=== PATIENT | male | born 1980 | race Caucasian/White ===

== ENCOUNTER 2017-07-23 01:18 | Emergency (ER) | payer SELFPAY ==
[~2017-07-23] VITALS: Ht 180.3 cm; Wt 95.3 kg
[~2017-07-23 01:18] MED LIST: ALBU0.8322 IH; ALBU17AE23 IH; ALBU17AE3; AMOX500C2 PO; AZIT-21 PO; BUDE10.22 IH; DOXY100C2 PO; GFN600TCR; GUAI100L2; HYDR-1231 PO; IPRA3AMP19; IPRA3AMP19 IH; METH4TAB PO; PRD20T PO; PRD50T PO; RT-COMBINH IH; TIOT18CA IH
--- OUTSIDE RECORDS SUMMARY | 2017-07-23 01:25 | XMS REPORT | Continuity of Care Document ---
Author Author [facility] Address Unknown Phone Unavailable Allergies Active Description Code Type Severity Reaction Onset Reported/Identified Relationship to Patient Clinical Status Yes No Known Drug Allergies [id number] Drug Allergy Mild N/A 06/29/2009 Medications There is no data. Problems Date Dx Coded Attending Type Code Diagnosis Diagnosed By 08/22/2012 Ot 493.92 08/22/2012 Ot 786.05 05/10/2013 GOVIND DUPONT MD Ot 465.9 05/10/2013 GOVIND DUPONT MD Ot 519.11 05/10/2013 GOVIND DUPONT MD Ot 786.2 06/07/2013 JARETT ESCALONA APRN N 493.12 INTRINSIC ASTHMA WITH (ACUTE) EXACERBATION 06/07/2013 JARETT ESCALONA APRN N 493.82 COUGH VARIANT ASTHMA 06/07/2013 JARETT ESCALONA APRN N 786.07 WHEEZING 06/07/2013 JOEL MCKEON APRN S 493.12 INTRINSIC ASTHMA WITH (ACUTE) EXACERBATION 06/07/2013 JOEL MCKEON APRN S 493.82 COUGH VARIANT ASTHMA 06/07/2013 JOEL MCKEON APRN S 786.07 WHEEZING 06/07/2013 JOEL MCKEON APRN S 493.12 INTRINSIC ASTHMA WITH (ACUTE) EXACERBATION 06/07/2013 NATHANAEL MCKEON APRNA S 493.82 COUGH VARIANT ASTHMA 06/07/2013 NATHANAEL MCKEON APRNA S 786.07 WHEEZING 06/07/2013 NATHANAEL MCKEON APRNA S 493.12 INTRINSIC ASTHMA WITH (ACUTE) EXACERBATION 06/07/2013 NATHANAEL MCKEON APRNA S 493.82 COUGH VARIANT ASTHMA 06/07/2013 NATHANAEL MCKEON APRNA S 786.07 WHEEZING 07/31/2013 JOEL MCKEON APRN S V70.0 EXAM - ROUTINE H&P 07/31/2013 JOEL MCKEON APRN V70.0 EXAM - ROUTINE H&P 10/18/2014 SHAHEEN ROBINS MD Ot 729.5 10/18/2014 SHAHEEN ROBINS MD Ot 815.00 10/18/2014 SHAHEEN ROBINS MD Ot E000.8 10/18/2014 SHAHEEN ROBINS MD Ot E917.4 Procedures Code [place] [address] INFLUENZA A & B (IN-HOUSE) 06/07/2013 J7613 ALBUTEROL UNIT DOSE FORM INHALED 06/07/2013 85466 OXIMETRY 06/07/2013 64501 OXIMETRY 07/10/2013 Results There is no data. Encounters ACCT No. Visit Date/Time Discharge Status Pt. Type Provider Facility Loc./Unit Complaint [id number] 01/31/2014 17:56:00 01/31/2014 23:59:59 CLS Outpatient JOEL MCKEON APRN [id number] 07/31/2013 09:59:00 07/31/2013 23:59:59 CLS Outpatient JOEL MCKEON APRN [id number] 07/10/2013 13:19:00 07/10/2013 23:59:59 CLS Outpatient JOEL MCKEON APRN [id number] 06/07/2013 09:27:00 06/07/2013 23:59:59 CLS Outpatient HANNAH COOPER DENNIS JARETT Eloise [id number] 10/18/2014 00:36:00 10/18/2014 02:38:00 DIS Emergency SHAHEEN ROBINS MD [facility] ER [id number] 05/10/2013 07:31:00 05/10/2013 09:25:00 DIS Emergency GOVIND DUPONT MD [facility] ER [id number] 08/21/2012 23:08:00 Document Registration
[2017-07-23] MEDS ORDERED: LACTATED RINGERS 1,000 ML IV ONE (01:31)
[2017-07-23 01:40] LABS: BASOPHILS # (AUTO) 0.1 10^3/uL (0.0-0.1); BASOPHILS % (AUTO) 1 % (0-10); EOSINOPHILS # (AUTO) 0.3 10^3/uL (0.0-0.3); EOSINOPHILS % (AUTO) 3 % (0-10); HEMATOCRIT 44 % (40-54); HEMOGLOBIN 15.6 G/DL (13.3-17.7); LYMPHOCYTES # (AUTO) 3.5 X 10^3 (1.0-4.0); LYMPHOCYTES % (AUTO) 33 % (12-44); MEAN CORPUSCULAR HEMOGLOBIN 32 PG (25-34); MEAN CORPUSCULAR HGB CONC 36 G/DL (32-36); MEAN CORPUSCULAR VOLUME 88 FL (80-99); MEAN PLATELET VOLUME 10.9 FL (7.4-10.4); MONOCYTES # (AUTO) 1.2 X 10^3 (0.0-1.0); MONOCYTES % (AUTO) 11 % (0-12); NEUTROPHILS # (AUTO) 5.5 X 10^3 (1.8-7.8); NEUTROPHILS % (AUTO) 52 % (42-75); PLATELET COUNT 241 10^3/uL (130-400); RED BLOOD COUNT 4.93 10^6/uL (4.35-5.85); RED CELL DISTRIBUTION WIDTH 12.3 % (10.0-14.5); WHITE BLOOD COUNT 10.5 10^3/uL (4.3-11.0)
[2017-07-23] MEDS ORDERED: KETOROLAC 30 MG/ML VIAL IVP ONE (01:45)
[2017-07-23] MEDS ORDERED: ONDANSETRON 4 MG/2 ML (SDV) Z0FRAN IVP ONE ×2 (01:45→04:00)
[2017-07-23 01:51] LABS: BILIRUBIN,URINE NEGATIVE (NEGATIVE); CLARITY,URINE CLEAR; COLOR,URINE YELLOW; GLUCOSE, URINE (UA) NEGATIVE (NEGATIVE); KETONES,URINE NEGATIVE (NEGATIVE); LEUKOCYTE ESTERASE ,URINE NEGATIVE (NEGATIVE); NITRITE,URINE NEGATIVE (NEGATIVE); PH,URINE 6 (5-9); PROTEIN,URINE NEGATIVE (NEGATIVE); UROBILINOGEN,URINE NORMAL (NORMAL)
[2017-07-23 01:57] LABS: BACTERIA,URINE NEGATIVE /HPF; SQUAMOUS EPITHELIAL CELL,UR 0-2 /HPF; WBC,URINE RARE /HPF
[2017-07-23 02:00] LABS: ALANINE AMINOTRANSFERASE 39 U/L (0-55); ALBUMIN 4.4 GM/DL (3.2-4.5); ALKALINE PHOSPHATASE 128 U/L (40-136); BILIRUBIN,TOTAL 0.6 MG/DL (0.1-1.0); BUN/CREATININE RATIO 17; CALCIUM 9.5 MG/DL (8.5-10.1); CARBON DIOXIDE 25 MMOL/L (21-32); CHLORIDE 107 MMOL/L (98-107); CREATININE SERUM 1.07 MG/DL (0.60-1.30); GFR ESTIMATED > 60; GLUCOSE 147 MG/DL (70-105); MAGNESIUM 2.5 MG/DL (1.8-2.4); POTASSIUM 3.7 MMOL/L (3.6-5.0); SODIUM 139 MMOL/L (135-145); TOTAL PROTEIN 6.8 GM/DL (6.4-8.2)
--- NOTE | 2017-07-23 03:11 | ED Abdominal Pain ---
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 REPORTS PAIN WOKE HIM FROM HIS SLEEP. ALSO C/O N/V PUBLIC HEALTH SPECIALIST Sepsis Screen: No Definite Risk Source of Information: Patient Exam Limitations: No Limitations History of Present Illness Date Seen by Provider: Jul 23, 2017 Time Seen by Provider: 01:25 Initial Comments Patient presents to the ER with a chief complaint that he was woke up tonight by a pain in his right abdomen and flank. He has no history of kidney stones, abdominal surgeries or abdominal problems. He is not having any diarrhea, rash, fever or chills. He has no cough shortness of breath or chest pain. He does not take medications for anything. He did take some Tylenol. He did vomit a couple times prior to coming in. Allergies and Home Medications Allergies Coded Allergies: No Known Drug Allergies (Unverified Allergy, Mild, 06/29/09) Home Medications Budesonide/Formoterol Fumarate 10.2 Gm Hfa.aer.ad, 2 PUFF IH BID, (Reported) Hydrocodone Bit/Acetaminophen 1 Tab Tablet, 1 TAB PO Q4H PRN for PAIN Prescribed by: SHAHEEN MCHUGH on 10/18/14 0124 Patient Home Medication List Home Medication List Reviewed: Yes Review of Systems Constitutional: No chills, No diaphoresis, No fever, No malaise EENTM: No Eye Pain, No Ear Pain Respiratory: Denies Cough, Denies Shortness of Air Cardiovascular: Denies Chest Pain, Denies Edema Gastrointestinal: See HPI, Denies Abdomen Distended, Abdominal Pain, Denies Constipated, Denies Diarrhea, Denies Nausea, Denies Vomiting Genitourinary: Denies Burning, Denies Discharge Past Znskowl-Sdknfl-Oyrsmd Hx Patient Social History Alcohol Use: Denies Use Recreational Drug Use: No Smoking Status: Never a Smoker Recent Foreign Travel: No Contact w/Someone Who Travel: No Recent Infectious Disease Expo: No Recent Hopitalizations: No Physical Abuse: No Sexual Abuse: No Mistreated: No Fear: No Immunizations Up To Date Tetanus Booster (TDap): Less than 5yrs Date of Influenza Vaccine: May 10, 2013 Seasonal Allergies Seasonal Allergies: No Surgeries History of Surgeries: No Respiratory History of Respiratory Disorde: Yes Respiratory Disorders: Asthma, COPD Cardiovascular History of Cardiac Disorders: No Neurological History of Neurological Disord: No Reproductive System Hx Reproductive Disorders: No Sexually Transmitted Disease: No Gastrointestinal History of Gastrointestinal Di: No Musculoskeletal History of Musculoskeletal Dis: No Endocrine History of Endocrine Disorders: No Cancer History of Cancer: No Psychosocial History of Psychiatric Problem: No Suicide Risk Score: 0 Blood Transfusions History of Blood Disorders: No Physical Exam Vital Signs VS - Last 72 Hours, by Label 07/23/17 01:25 Temp 96.7 Pulse 71 Resp 20 B/P (MAP) 163/102 (122) Pulse Ox 96 O2 Delivery Room Air Capillary Refill : Less Than 3 Seconds General Appearance: WD/WN, mild distress HEENT: PERRL/EOMI, pharynx normal (oral mucosa is moist) Respiratory: chest non-tender, lungs clear, normal breath sounds, no respiratory distress, no accessory muscle use Cardiovascular: normal peripheral pulses, regular rate, rhythm Gastrointestinal: normal bowel sounds, guarding, No rebound, tenderness (right upper quadrant and right lower quadrant and right flank), other (negative for Harris sign or tenderness over McBurney's point.) Extremities: non-tender, normal inspection, no pedal edema, normal capillary refill Back: normal inspection, CVA tenderness (R) (tender to percussion) Neurologic/Psychiatric: alert, oriented x 3 Skin: normal color, warm/dry Progress/Results/Core Measures Results/Orders Lab Results Laboratory Tests Test 07/23/17 01:30 07/23/17 01:43 Range/Units White Blood Count 10.5 4.3-11.0 10^3/uL Red Blood Count 4.93 4.35-5.85 10^6/uL Hemoglobin 15.6 13.3-17.7 G/DL Hematocrit 44 40-54 % Mean Corpuscular Volume 88 80-99 FL Mean Corpuscular Hemoglobin 32 25-34 PG Mean Corpuscular Hemoglobin Concent 36 32-36 G/DL Red Cell Distribution Width 12.3 10.0-14.5 % Platelet Count 241 130-400 10^3/uL Mean Platelet Volume 10.9 H 7.4-10.4 FL Neutrophils (%) (Auto) 52 42-75 % Lymphocytes (%) (Auto) 33 12-44 % Monocytes (%) (Auto) 11 0-12 % Eosinophils (%) (Auto) 3 0-10 % Basophils (%) (Auto) 1 0-10 % Neutrophils # (Auto) 5.5 1.8-7.8 X 10^3 Lymphocytes # (Auto) 3.5 1.0-4.0 X 10^3 Monocytes # (Auto) 1.2 H 0.0-1.0 X 10^3 Eosinophils # (Auto) 0.3 0.0-0.3 10^3/uL Basophils # (Auto) 0.1 0.0-0.1 10^3/uL Sodium Level 139 135-145 MMOL/L Potassium Level 3.7 3.6-5.0 MMOL/L Chloride Level 107 98-107 MMOL/L Carbon Dioxide Level 25 21-32 MMOL/L Anion Gap 7 5-14 MMOL/L Blood Urea Nitrogen 18 7-18 MG/DL Creatinine 1.07 0.60-1.30 MG/DL Estimat Glomerular Filtration Rate > 60 BUN/Creatinine Ratio 17 Glucose Level 147 H 70-105 MG/DL Calcium Level 9.5 8.5-10.1 MG/DL Magnesium Level 2.5 H 1.8-2.4 MG/DL Total Bilirubin 0.6 0.1-1.0 MG/DL Aspartate Amino Transf (AST/SGOT) 18 5-34 U/L Alanine Aminotransferase (ALT/SGPT) 39 0-55 U/L Alkaline Phosphatase 128 40-136 U/L C-Reactive Protein High Sensitivity 0.13 0.00-0.50 MG/DL Total Protein 6.8 6.4-8.2 GM/DL Albumin 4.4 3.2-4.5 GM/DL Urine Color YELLOW Urine Clarity CLEAR Urine pH 6 5-9 Urine Specific [place] 1.020 1.016-1.022 Urine Protein NEGATIVE NEGATIVE Urine Glucose (UA) NEGATIVE NEGATIVE Urine Ketones NEGATIVE NEGATIVE Urine Nitrite NEGATIVE NEGATIVE Urine Bilirubin NEGATIVE NEGATIVE Urine Urobilinogen NORMAL NORMAL MG/DL Urine Leukocyte Esterase NEGATIVE NEGATIVE Urine RBC (Auto) 3+ H NEGATIVE Urine RBC 5-10 H /HPF Urine WBC RARE /HPF Urine Squamous Epithelial Cells 0-2 /HPF Urine Crystals NONE /LPF Urine Bacteria NEGATIVE /HPF Urine Casts NONE /LPF Urine Mucus SMALL H /LPF Urine Culture Indicated NO My Orders Orders - ARCENIO COBOS Cbc With Automated Diff (07/23/17 01:31) Comprehensive Metabolic Panel (07/23/17 01:31) Hs C Reactive Protein (07/23/17 01:31) Magnesium (07/23/17 01:31) Ua Culture If Indicated (07/23/17 01:31) Saline Lock/Iv-Start (07/23/17 01:31) Lactated Ringers (Lr 1000 Ml Iv Solution (07/23/17 01:31) Ketorolac Injection (Toradol Injection) (07/23/17 01:45) Ondansetron Injection (Zofran Injectio (07/23/17 01:45) Ct Abd/Pelvis Wo(Kidney Stone) (07/23/17 02:00) Abdomen/Kub 1view (07/23/17 02:01) Medications Given in ED Current Medications Medications Dose Ordered Sig/Zena Route Start Time Stop Time Status Last Admin Dose Admin Ketorolac Tromethamine 15 mg ONCE ONCE IVP 07/23/17 01:45 07/23/17 01:46 DC 07/23/17 01:39 15 MG Lactated Ringer's 1,000 ml @ 0 mls/hr Q0M ONCE IV 07/23/17 01:31 07/23/17 01:34 DC 07/23/17 01:39 1,000 MLS/HR Ondansetron HCl 4 mg ONCE ONCE IVP 07/23/17 01:45 07/23/17 01:46 DC 07/23/17 01:39 4 MG Vital Signs/I&O Vital Sign - Last 12Hours 07/23/17 01:25 Temp 96.7 Pulse 71 Resp 20 B/P (MAP) 163/102 (122) Pulse Ox 96 O2 Delivery Room Air Blood Pressure Mean: 122 Progress Note : Time: 03:08 Progress Note Atraumatic right flank pain with hematuria microscopically and right CVA tenderness most commonly caused by a kidney stone. We'll give ketorolac, Zofran and some IV fluids. Diagnostic Imaging Diagonstic Imaging: CT (without contrast) Plain Films/CT/US/NM/MRI: abdomen, pelvis Comments Stool in the colon. Gallbladder unremarkable. Mild right hydronephrosis. Small stone at the Right ureterovesical junction. 2-4 mm Stat read there is a 2 mm calculus in the right distal ureter at the UVJ with mild hydroureter and hydronephrosis. Reviewed: Reviewed [place] Study (stat rad), Reviewed by Me Diagonstic Imaging: Xray Plain Films/CT/US/NM/MRI: abdomen (1 view KUB) Comments No stone seen on flat plate plain film. Nonspecific bowel gas pattern noted. Reviewed: Reviewed by Me Departure Impression Impression: Primary Impression: Ureteral calculus, right Disposition: 01 HOME, SELF-CARE Condition: Improved Departure-Patient Inst. Decision time for Depature: 03:47 Referrals: NO,LOCAL PHYSICIAN (PCP) Primary Care Physician Patient Instructions: Kidney Stones (DC) Add. Discharge Instructions: Drink lots of fluids. Caffeine is okay. If you begin to develop fever return to your doctor. Strain your urine and if you catch the stone you can take it your doctor they can have it tested to find out what the make up is. Review the handout for general recommendations for kidney stones. You can use Tylenol 1000 mg every 8 hours in addition to ibuprofen 800 mg every 8 hours. If this is not working you can take one or 2 tablets of the oxycodone every 6 hours for your pain. Oxycodone will cause drowsiness as well as constipation so you may need to use Colace or MiraLAX to keep himself regular. It is not unusual to see some pink tinged urine or have some pain residual for 2-3 days after passing a kidney stone. If you have nausea place one tablet of Zofran on your tongue and allowed to dissolve every 6 hours as needed. All discharge instructions reviewed with patient and/or family. Voiced understanding. Scripts Ondansetron (Ondansetron Odt) 4 Mg Tab.rapdis 4 MG PO Q6H Y for NAUSEA/VOMITING, #8 TAB 0 Refills Prov: ARCENIO COBOS 07/23/17 Oxycodone HCl/Acetaminophen (Oxycodone-Acetaminophen 5-325) 1 Each Tablet 1-2 EACH PO Q6H Y for PAIN, #14 TAB 0 Refills Prov: ARCENIO COBOS 07/23/17 ARCENIO COBOS Jul 23, 2017 03:11
[2017-07-23] MEDS ORDERED: ONDA4TAB11 PO (03:50)
[2017-07-23] MEDS ORDERED: OXYC-471 PO (03:50)
[2017-07-23] MEDS ORDERED: RX-ONDANSETRON 4 MG ODT (ZOFRAN) PPK #4 PO STA (03:51)
[2017-07-23 04:00] VITALS: BP 138/100
[2017-07-23] MEDS ORDERED: fentaNYL INJECTION 100 MCG/2 ML AMP IVP ONE (04:00)
[2017-07-23] MEDS ORDERED: RX-OXYCODONE/APAP 5-325 MG #4 TAB PK PO PRN (04:00)
--- NOTE | 2017-07-23 06:30 | Diagnostic Imaging Report ---
PROCEDURE: CT urinary tract, rule out kidney stone. TECHNIQUE: Multiple contiguous axial images were obtained through the abdomen and pelvis without the use of intravenous contrast. INDICATION: Right flank pain. FINDINGS: The visualized lung bases appear clear. There is no pleural or pericardial effusion. The liver demonstrates no evidence of a focal intrahepatic abnormality. The gallbladder is nondistended. No radiodense gallstone or biliary dilatation. Spleen normal in size. Pelvis unremarkable. There is no adrenal mass. Left kidney normal without obstruction. Right kidney demonstrates a mild to moderate right-sided hydronephrosis and hydroureter with some stranding along the ureter. There is a 2 mm stone demonstrated within the distal right ureter at the level of the ureterovesicular junction. No other collecting system calculus evident. Small and large bowel normal in caliber without obstruction. There is no focal abnormal bowel thickening. The appendix is normal and contains a small appendicolith. There is no free fluid. There is no free air. There is no abscess. Urinary bladder unremarkable. There is no pathologic adenopathy. The aorta is normal in caliber. There is no acute or suspicious osseous abnormality demonstrated. IMPRESSION: 1. Moderate right-sided hydronephrosis and hydroureter with some periureteric fat stranding secondary to a 2 mm stone within the distal right ureter at the level of right ureteral vesicular junction. 2. Noncontrast CT abdomen and pelvis otherwise unremarkable. 3. [facility]. Dictated by: Dictated on workstation # [id number]
--- NOTE | 2017-07-23 06:37 | Diagnostic Imaging Report ---
INDICATION: Right flank pain. COMPARISON: None available. FINDINGS: Nonobstructive bowel gas pattern. No evidence of free air on single supine view. No radiopaque renal or ureteral calculi by radiography. Normal regional skeleton. IMPRESSION: No renal or ureteral calculi by radiography. Dictated by: Dictated on workstation # [id number]
== END 2017-07-23 04:00 | disposition home or self-care (01) ==
LOC: EDUNIT# 01:18 → ER 01:21
DX: N20.1 Calculus of ureter (principal); J44.9 Chronic obstructive pulmonary disease, unspecified
CPT/HCPCS: 36415; 74018; 74176; 80053; 81000; 83735; 85025; 86141